=== PATIENT | female | born 1985 | race Caucasian/White ===

== ENCOUNTER 2019-11-10 11:36 | Outpatient (CLI) | payer OTHER, SELFPAY ==
--- NOTE | ~2019-11-10 | XR_ITS ---
XR hysterosalpingogram DATE: 11/10/2019 12:13 INDICATION: Infertility TECHNIQUE: Fluoroscopy was provided during a hysterosalpingogram procedure performed by Dr. Keira ovalles 0.3 minutes fluoroscopy time DAP 2.2 COMPARISON: None FINDINGS: The uterine cavity and fallopian tubes appear normal. There is bilateral free peritoneal sp illage of contrast material. IMPRESSION: Normal examination; bilateral patent fallopian tubes Reviewed, dictated and finalized at [facility]. Reviewed, dictated and finalized at [facility].
== END 2019-11-10 11:37 | disposition home or self-care (01) ==
LOC: ANHIMG 11:41
PROVIDERS: PCP Family Medicine; Visit Provider Obstetrics & Gynecology
DX: N97.9 Female infertility, unspecified (principal)
CPT/HCPCS: 74740; Q9966